=== PATIENT | female | born 1985 | race Caucasian/White ===

== ENCOUNTER 2016-10-31 12:47 | Emergency (ER) | payer OTHER ==
[2016-10-31 12:58] VITALS: BP 139/94; PULSE 86; TEMP 98.3; BMI 38.2
[2016-10-31] MEDS ORDERED: ALBUTEROL SO4 2.5/IPRATROPIUM 0.5 INH SOL 3 ML VIAL.NEB. NEB ONE ×2 (13:47→13:49)
[2016-10-31] MEDS ORDERED: predniSONE 20 MG TABLET (UD) PO ONE (13:47)
[2016-10-31] MEDS ORDERED: predniSONE 20 MG TABLET (UD) ONE (13:49)
--- NOTE | 2016-10-31 13:57 | PDOC ---
History of Present Illness - General Chief Complaint: Asthma Stated Complaint: SOB Time Seen by Provider: 10/31/16 13:24 History Source: Patient Exam Limitations: No Limitations - History of Present Illness Initial Comments: 10/31/16 13:47 Patient is a 31-year-old female with history of chronic sinus infections and asthma presents emergency department for "mucus and cough in the chest". Patient reports on Sunday she was seen by her doctor who started her on Augmentin for a sinus infection. Patient states that she thinks that the upper respiratory infection has settled in her chest now with green productive cough, occasional wheezing, bronchospasm. Has been using albuterol inhaler frequently reports feeling short of breath. Past Medical History: Denies. Allergies: No known allergies Medications: Augmentin and albuterol when necessary Family History: Non-contributory Social History: Denies smoking, alcohol use, or IVDU Review of Systems GENERAL/CONSTITUTIONAL: No fever or chills. No weakness. No weight change. HEAD, EYES, EARS, NOSE AND THROAT: No change in vision. No ear pain or discharge. No sore throat. CARDIOVASCULAR: No chest pain . RESPIRATORY: Cough, intermittent wheezing, no hemoptysis, bronchospasm and shortness of breath. GASTROINTESTINAL: No nausea, vomiting, diarrhea or constipation. No rectal bleeding. GENITOURINARY: No dysuria, frequency, or change in urination. MUSCULOSKELETAL: No joint or muscle swelling or pain. No neck or back pain. SKIN AND BREASTS: No rash or easy bruising. NEUROLOGIC: No headache, vertigo, loss of consciousness, or loss of sensation. ENDOCRINE: No increased thirst. No abnormal weight change. HEMATOLOGIC/LYMPHATIC: No anemia, easy bleeding, or history of blood clots. ALLERGIC/IMMUNOLOGIC: No hives or skin allergy. No latex allergy. Physical Exam: GENERAL: The patient is awake, alert, and fully oriented, in no acute distress. HEAD: Normal with no signs of trauma. EYES: Pupils equal, round and reactive to light, extraocular movements intact, sclera anicteric, conjunctiva clear. ENT: Ears normal, nares patent, oropharynx clear without exudates. Moist mucous membranes. No uvula deviation NECK: Normal range of motion, supple without lymphadenopathy, JVD, or masses. LUNGS: Breath sounds equal,, decrease at the bases but clear no wheezing no crackles no rhonchi. Bronchospasm noted during assessment when i asked her to take a deep breath HEART: Regular rate and rhythm, normal S1 and S2 without murmur, rub or gallop. ABDOMEN: Soft, nontender, normoactive bowel sounds. No guarding, no rebound. No masses. No bruising or abrasions MUSCULOSKELETAL: Normal range of motion, no edema. No clubbing or cyanosis. No cords, erythema, or tenderness. No CVA Tenderness with fist. NEUROLOGICAL: Cranial nerves II through XII grossly intact. Normal speech, normal gait. SKIN: Warm, Dry, normal turgor, no rashes or lesions noted. Past History - Past Medical History Allergies/Adverse Reactions: Allergies Allergy/AdvReac Type Severity Reaction Status Date / Time No Known Allergies Allergy Verified 10/31/16 12:54 Home Medications: Ambulatory Orders Albuterol 0.083% Nebulizer Tawny [Ventolin 0.083%] 1 neb NEB Q4H #30 vial Albuterol Sulfate Inhaler - [Ventolin HFA Inhaler -] 2 inh PO Q4H 10/31/16 Amoxicillin/Potassium Clav [Augmentin 875-125 Tablet] 1 each PO ASDIR 10/31/16 Prednisone [Deltasone -] 20 mg PO DAILY #5 tablet 10/31/16 Asthma: Yes COPD: Yes - Immunization History Immunization Up to Date: Yes - Suicide/Smoking/Psychosocial Hx Smoking History: Never smoked Have you smoked in the past 12 months: No Information on smoking cessation initiated: No Hx Alcohol Use: No Drug/Substance Use Hx: No Substance Use Type: None *Physical Exam - Vital Signs Last Vital Signs Temp Pulse Resp BP Pulse Ox 98.3 F 86 17 139/94 97 10/31/16 12:54 10/31/16 12:54 10/31/16 12:54 10/31/16 12:54 10/31/16 12:54 Medical Decision Making - Medical Decision Making 10/31/16 14:02 A/P: Patient here for evaluation of bronchospasm, productive cough. Patient is under the care of a doctor for sinus infection on Augmentin which will treat her upper respiratory infection however patient has been using her inhaler at home without resolve. Bronchospasm with inability to take a deep breath noted during assessment. We'll give Combivent treatment and 60 mg of prednisone for reactive airway. Reevaluate after treatment. 10/31/16 16:40 Visit clear after treatment, patient states she feels better we'll DC patient home with a Ventolin, prednisone. Continue her current antibiotic treatment. Reactive airway I discussed the physical exam findings and final diagnoses with the patient. I answered all of the patient's questions. The patient was satisfied with the care received and felt comfortable with the discharge plan and treatment plan. The patient will call to arrange follow-up and will return to the Emergency Department with any new, persisting or worsening symptoms. *DC/Admit/Observation/Transfer Diagnosis at time of Disposition: Bronchospasm, acute - Discharge Dispostion Disposition: HOME Condition at time of disposition: Good Admit: No - Prescriptions Prescriptions: Prednisone [Deltasone -] 20 mg PO DAILY #5 tablet Albuterol 0.083% Nebulizer Tawny [Ventolin 0.083%] 1 neb NEB Q4H #30 vial - Patient Instructions Printed Discharge Instructions: Asthma -- Adult, DI for Acute Bronchitis Additional Instructions: Keep head of bed elevated 45 when sleeping Treatments every 4 hours as needed Cool air humidifier Frequent chest PT Continue antibiotics until completed Followup in the primary care doctor's office in 2 days for evaluation. If any respiratory distress, increased cough, inability to drink, increased wheezing please return immediately to emergency department. - Post Discharge Activity Forms/Work/School Notes: Back to Work
== END 2016-10-31 15:21 | disposition home or self-care (01) ==
LOC: JERFT 12:47
PROC: 3E0F7GC Introduction of Other Therapeutic Substance into Respiratory Tract, Via Natural or Artificial Opening (ICD-10-PCS; principal; 2016-10-31)
DX: J98.01 Acute bronchospasm (principal)
CPT/HCPCS: 99281-25